=== PATIENT | female | born 1980 | race Caucasian/White ===

== ENCOUNTER 2018-08-07 11:52 | Observation (INO) ==
--- NOTE | 2018-08-07 13:40 | ED ---
HPI General Chief complaint: Neuro Symptoms/Deficit Stated complaint: Medical Time Seen by Provider: 08/07/18 13:12 History of Present Illness HPI narrative: 37-year-old female presents to the emergency department for evaluation of left arm numbness. The patient states that earlier today she experienced total left arm numbness that lasted for several minutes. States that it resolved on its own. She's also complaining of generalized weakness. She states she also had a significant headache 2 days ago that woke her up at night, this resolved on its own. She states she had had other abnormal symptoms recently including burning of her lower face intermittently with muscle twitching in the face occasionally. She also states over the past month she has had episodes of extreme heaviness of her eyelids. She states 3 months ago she was diagnosed with mouth burning syndrome after taking a medrol dosepak. Prior to this she has had no medical conditions. Denies any fever, chills, nausea, vomiting, chest pain, shortness of breath, lightheadedness, dizziness. No other complaints or concerns. Related Data Home Medications Medication Instructions Recorded Confirmed alprazolam [Xanax] 0.5 mg PO BID PRN 08/07/18 08/07/18 escitalopram oxalate [Lexapro] 10 mg PO DAILY 08/07/18 08/07/18 Allergies Allergy/AdvReac Type Severity Reaction Status Date / Time cephalexin Allergy Severe HIVES Unverified 06/24/17 17:56 erythromycin base Allergy Severe PALPITATION Unverified 06/24/17 17:56 S Review of Systems ROS: all other systems reviewed are negative [facility] Social History Social History Substance History: No History of Abuse Smoking Status: Never smoker How Often Do You Have a Drink Containing Alcohol: Never Recent Travel in [facility] within the Last 8 Weeks: No Recent Out of Country Travel within the Last 8 Weeks: No Immunization History Tetanus Immunization: Unsure Exam Narrative Exam Narrative: GENERAL: Well-nourished and well-developed pleasant patient in no acute distress who is nontoxic appearing. SKIN: Warm and dry. HEAD: Normocephalic and atraumatic. EYES: No injection, drainage, or hyphema noted. PERRLA. EOMI. ENT: No nasal drainage noted. Oropharynx is clear and the TMs are normal with good landmarks. NECK: Supple and the trachea is midline. No lymphadenopathy is noted throughout the cervical chains. CARDIOVASCULAR: Regular rate and rhythm. RESPIRATORY: Breath sounds are equal bilaterally with no accessory muscle use, wheezing, rhonchi, or crackles. GASTROINTESTINAL: Abdomen is soft, non-tender, and nondistended. MUSCULOSKELETAL: No obvious deformities, swelling, cyanosis, or ecchymosis is present throughout the upper and lower extremities. Patient has full range of motion without any signs of neurovascular compromise. Distal pulses are 2+ throughout. Strength 5/5 upper and lower extremities and equal bilaterally. NEUROLOGICAL: Awake, alert, and oriented. Normal speech and gait. Normal finger to nose testing. Normal heel to bernal test. Cranial nerves are grossly intact. Course Initial Documented Vital Signs Temperature 98.4 F 08/07/18 11:57 Pulse Rate 74 08/07/18 11:57 Respiratory Rate 16 08/07/18 11:57 Blood Pressure 137/74 08/07/18 11:57 Pulse Oximetry 100 08/07/18 11:57 Last Documented Vital Signs Temperature 98.4 F 08/07/18 11:57 Pulse Rate 66 08/07/18 15:10 Respiratory Rate 16 08/07/18 15:10 Blood Pressure 112/70 08/07/18 15:10 Pulse Oximetry 100 08/07/18 15:10 Medical Decision Making MDM Narrative Medical decision making narrative: 37-year-old female presents to the ED for evaluation of left arm numbness and multiple other neuro complaints. Patient is afebrile, vitals are stable. Physical exam is unremarkable. IV access is obtained, labs have been drawn and sent. Patient is placed on cardiac telemetry and pulse oximetry monitoring. CBC is unremarkable. Coags are unremarkable. CMP shows slightly decreased potassium of 3.4, otherwise unremarkable. Magnesium is unremarkable. Head CT is negative. Discussed case with my attending physician Dr. Max who also evaluated the patient. We agree to keep patient under observation for TIA work up. Patient is agreeable with this plan. I spoke with Dr. Mosquera [facility] who agrees to accept patient to his service for observation. Medical Screen Exam Complete: Yes Emergency Medical Condition: Yes Differential Diagnosis Differential Diagnosis: TIA versus electrolyte abnormality versus trigeminal neuralgia versus TMJ versus MS Lab Data Result diagrams: 08/07/18 13:15 08/07/18 13:15 POC Results POC Urine Results Negative Lab Results 09/28/18 09/28/18 09/28/18 Range/Units 13:15 13:15 13:15 WBC 9.1 (4.0-11.0) th/mm3 RBC 4.52 (4.00-5.30) mil/mm3 Hgb 13.1 (11.6-15.3) gm/dL Hct 40.3 (35.0-46.0) % MCV 89.1 (80.0-100.0) fL MCH 28.9 (27.0-34.0) pg MCHC 32.4 (32.0-36.0) % RDW 15.5 (11.6-17.2) % Plt Count 286 (150-450) th/mm3 MPV 10.5 (7.0-11.0) fL Neut % (Auto) 74.9 H (16.0-70.0) % Lymph % (Auto) 14.9 (9.0-44.0) % Dane % (Auto) 6.4 (0.0-8.0) % Eos % (Auto) 3.0 (0.0-4.0) % Baso % (Auto) 0.8 (0.0-2.0) % Neut # (Auto) 6.8 (1.8-7.7) th/mm3 Lymph # (Auto) 1.4 (1.0-4.8) th/mm3 Dane # (Auto) 0.6 (0.0-0.9) th/mm3 Eos # (Auto) 0.3 (0.0-0.4) th/mm3 Baso # (Auto) 0.1 (0.0-0.2) th/mm3 WBC Differential . Differential Comment Auto diff final PT 10.4 (9.8-11.6) sec INR 1.0 Ratio APTT 29.1 (24.3-30.1) sec Sodium 140 (136-145) meq/L Potassium 3.4 L (3.5-5.1) meq/L Chloride 105 (98-107) meq/L Carbon Dioxide 24.8 (21.0-32.0) meq/L Anion Gap 10 (5-15) meq/L BUN 10 (7-18) mg/dL Creatinine 0.72 (0.50-1.00) mg/dL Estimated GFR Greater than 89 (>89) mL/min Random Glucose 69 L (74-106) mg/dL Calcium 8.6 (8.5-10.1) mg/dL Magnesium (1.5-2.5) mg/dL Total Bilirubin 0.4 (0.2-1.0) mg/dL AST 13 L (15-37) U/L ALT 15 (10-53) U/L Alkaline Phosphatase 59 (45-117) U/L Total Protein 8.0 (6.4-8.2) g/dL Albumin 4.1 (3.4-5.0) g/dL 08/07/18 Range/Units 13:15 WBC (4.0-11.0) th/mm3 RBC (4.00-5.30) mil/mm3 Hgb (11.6-15.3) gm/dL Hct (35.0-46.0) % MCV (80.0-100.0) fL MCH (27.0-34.0) pg MCHC (32.0-36.0) % RDW (11.6-17.2) % Plt Count (150-450) th/mm3 MPV (7.0-11.0) fL Neut % (Auto) (16.0-70.0) % Lymph % (Auto) (9.0-44.0) % Dane % (Auto) (0.0-8.0) % Eos % (Auto) (0.0-4.0) % Baso % (Auto) (0.0-2.0) % Neut # (Auto) (1.8-7.7) th/mm3 Lymph # (Auto) (1.0-4.8) th/mm3 Dane # (Auto) (0.0-0.9) th/mm3 Eos # (Auto) (0.0-0.4) th/mm3 Baso # (Auto) (0.0-0.2) th/mm3 WBC Differential Differential Comment PT (9.8-11.6) sec INR Ratio APTT (24.3-30.1) sec Sodium (136-145) meq/L Potassium (3.5-5.1) meq/L Chloride (98-107) meq/L Carbon Dioxide (21.0-32.0) meq/L Anion Gap (5-15) meq/L BUN (7-18) mg/dL Creatinine (0.50-1.00) mg/dL Estimated GFR (>89) mL/min Random Glucose (74-106) mg/dL Calcium (8.5-10.1) mg/dL Magnesium 2.1 (1.5-2.5) mg/dL Total Bilirubin (0.2-1.0) mg/dL AST (15-37) U/L ALT (10-53) U/L Alkaline Phosphatase (45-117) U/L Total Protein (6.4-8.2) g/dL Albumin (3.4-5.0) g/dL Imaging Data Radiologist's impression: Head CT 08/07/18 13:36 CONCLUSION: 1. No acute intracranial abnormality. . Discharge Plan Discharge Disposition Patient Disposition: 30 Still Patient Discharge Details Diagnosis: Paresthesia of arm, Facial paresthesia Physicians Team ED Provider: Nathaniel Max ED Midlevel Provider: Mary Almeida Primary Care Provider: NON STAFF,PROVIDER Rxs /Orders / Referrals /Forms Prescriptions: No Action alprazolam [Xanax] 0.5 mg Tablet 0.5 mg PO BID PRN (Reason: Anxiety) RF: 0 escitalopram oxalate [Lexapro] 10 mg Tablet 10 mg PO DAILY RF: 0 Status ED Status: With Doctor
[2018-08-07 14:05] LABS: Baso # (Auto) 0.1 th/mm3 (0.0-0.2); Baso % (Auto) 0.8 % (0.0-2.0); Eos # (Auto) 0.3 th/mm3 (0.0-0.4); Hematocrit 40.3 % (35.0-46.0); Hemoglobin 13.1 gm/dL (11.6-15.3); Lymph # (Auto) 1.4 th/mm3 (1.0-4.8); Lymph % (Auto) 14.9 % (9.0-44.0); Mean Corpuscular HGB Conc 32.4 % (32.0-36.0); Mean Corpuscular Hemoglobin 28.9 pg (27.0-34.0); Mean Corpuscular Volume 89.1 fL (80.0-100.0); Mean Platelet Volume 10.5 fL (7.0-11.0); Mono # (Auto) 0.6 th/mm3 (0.0-0.9); Mono % (Auto) 6.4 % (0.0-8.0); Neut # (Auto) 6.8 th/mm3 (1.8-7.7); Neut % (Auto) 74.9 % (16.0-70.0); Platelet Count 286 th/mm3 (150-450); Red Blood Count 4.52 mil/mm3 (4.00-5.30); Red Cell Distribution Width 15.5 % (11.6-17.2); White Blood Count 9.1 th/mm3 (4.0-11.0)
[2018-08-07 14:15] LABS: Activated Partial Thrombo Time 29.1 sec (24.3-30.1); Prothrombin Time 10.4 sec (9.8-11.6)
[2018-08-07 14:30] LABS: Alanine Aminotransferase 15 U/L (10-53); Albumin 4.1 g/dL (3.4-5.0); Anion Gap 10 meq/L (5-15); Aspartate Aminotransferase 13 U/L (15-37); Blood Urea Nitrogen 10 mg/dL (7-18); Calcium 8.6 mg/dL (8.5-10.1); Carbon Dioxide 24.8 meq/L (21.0-32.0); Chloride 105 meq/L (98-107); Glomerular Filtration Rate Greater Than 89 mL/min (>89); Glucose,Random 69 mg/dL (74-106); Potassium 3.4 meq/L (3.5-5.1); Sodium 140 meq/L (136-145)
[2018-08-07 14:33] LABS: Alkaline Phosphatase 59 U/L (45-117)
--- NOTE | 2018-08-07 15:08 | CT ---
EXAM DATE: 08/07/2018 1:43 PM EDT AGE/SEX: 37 years / Female INDICATIONS: Left side facial numbness and facial droop. CLINICAL DATA: This is the patient's initial encounter. Patient reports that signs and symptoms have been present for 1 day and indicates a pain score of 0/10. MEDICAL/SURGICAL HISTORY: None. None. RADIATION DOSE: 35.72 CTDI (mGy) COMPARISON: No prior exams available for comparison. TECHNIQUE: CT of the head without contrast. Using automated exposure control and adjustment of the mA and/or kV according to patient size, radiation dose was kept as low as reasonably achievable to ob tain optimal diagnostic quality images. DICOM format image data is available electronically for revi ew and comparison. FINDINGS: Cerebrum: The ventricles are normal for age. No evidence of midline shift, mass lesion, hemorrhage o r acute infarction. No extraaxial fluid collections are seen. Posterior Fossa: The cerebellum and brainstem are intact. The 4th ventricle is midline. The cerebe llopontine angle is unremarkable. Extracranial: The visualized portion of the orbits is intact. Skull: The calvaria is intact. No evidence of skull fracture. CONCLUSION: 1. No acute intracranial abnormality. . Electronically signed by: Vikash Bhatt MD 08/07/2018 3:07 PM EDT
[2018-08-07] MEDS ORDERED: ALPRAZolam 0.5 MG Tablet PO PRN (16:41)
--- NOTE | 2018-08-07 16:55 | P.HPIM ---
History of Present Illness Service: [facility] Primary Care Physician: PROVIDER NON STAFF Chief Complaint: LEFT ARM NUMBNESS AND TINGLING History of Present Illness: Patient is a 37-year-old female. Who presented to the emergency department today for evaluation of left arm numbness. Patient states that earlier she experienced total left arm numbness that lasted for several minutes. She states that it resolved on its own. She also complained of generalized weakness. She is stated that she had significant headache 2 days ago that woke her up at night. This resolved on its own. She states she had some other abnormal symptoms recently including burning of her lower face intermittently with muscle twitching in the face occasionally. Also states over the past month that she had episodes of extreme heaviness of her eyelids. She states 3-month ago she was diagnosed with "burning mouth syndrome". She states she saw ENT Dr. Perez who referred her to an hand coremaker and a senior construction manager regarding this. Patient states that the "murmur burning mouth syndrome" started after taking a Medrol Dosepak. Prior to this that her only medical conditions are her anxiety and depression for which he takes Xanax and Lexapro. Patient denies any fevers, denies any chills, denies any nausea, denies any vomiting, denies any chest pain, denies any shortness of breath, denies any lightheadedness, denies any dizziness. Denies any other major somatic complaints. Review of Systems All other systems reviewed negative except as stated in HPI PMFSH - History History Provided By: Patient, Family Member - Medical History Medical History: Medical History (Last Updated 08/07/18 @ 16:48 by Dieter Snow DO) Anxiety Burning mouth syndrome Depression Frequent headaches - Family History Family History: Family History (Last Updated 08/07/18 @ 16:49 by Dieter Snow DO) Other Family history normal - Social History I have reviewed the patient's Social History: Yes - Tobacco History Second Hand Smoke Exposure: No Tobacco Use In Past 30 Days: No Smoking Status: Never smoker - Alcohol History How Often Do You Have a Drink Containing Alcohol: Never - Substance Use History Substance History: No History of Abuse - Travel History History of Recent Travel: No Recent Travel in the [place] Within the Last 8 Weeks: No Recent Travel Out of the Country Within the Last 8 Weeks: No - Immunization History Tetanus Immunization: Unsure Medications and Allergies Active Medications: Active Medications Alprazolam (Xanax) 0.5 mg PO BID PRN PRN Reason: Anxiety Aspirin (Aspirin Chew) 81 mg PO DAILY DILEEP Escitalopram Oxalate (Lexapro) 10 mg PO DAILY [facility] Heparin Sodium (Porcine) (Heparin Inj) 5,000 units SQ Q12H [facility] Sodium Chloride (Ns Inj) 1,000 mls @ 70 mls/hr IV.CONT .[id number] DILEEP Pravastatin Sodium (Pravachol) 40 mg PO HS DILEEP Allergies Allergy/AdvReac Type Severity Reaction Status Date / Time cephalexin Allergy Severe HIVES Verified 08/07/18 16:02 erythromycin base Allergy Severe PALPITATION Verified 08/07/18 16:02 S Home Medications Medication Instructions Recorded Confirmed Type alprazolam [Xanax] 0.5 mg PO BID PRN 08/07/18 08/07/18 History escitalopram oxalate [Lexapro] 10 mg PO DAILY 08/07/18 08/07/18 History Exam Vital signs: Vital Signs 08/07/18 11:57 08/07/18 13:02 08/07/18 15:10 Temperature 98.4 F Pulse Rate 74 76 66 Respiratory Rate 16 18 16 Blood Pressure 137/74 132/73 112/70 Pulse Oximetry 100 100 100 Intake & Output 08/06/18 08/07/18 08/07/18 18:59 06:59 18:59 Weight 57.606 kg Narrative: GENERAL: Awake alert and oriented x3 talkative and cooperative SKIN: Warm and dry. HEAD: Atraumatic. Normocephalic. EYES: Pupils equal and round. No scleral icterus. No injection or drainage. EOMI ENT: No nasal bleeding or discharge. Mucous membranes pink and moist. Tongue is midline NECK: Trachea midline. No JVD. CARDIOVASCULAR: Regular rate and rhythm. S1-S2 no S3 or S4 RESPIRATORY: No accessory muscle use. Clear to auscultation. Breath sounds equal bilaterally. GASTROINTESTINAL: Abdomen soft, non-tender, nondistended. Hepatic and splenic margins not palpable. MUSCULOSKELETAL: Extremities without clubbing, cyanosis, or edema. No obvious deformities. NEUROLOGICAL: Awake and alert. No obvious cranial nerve deficits. Motor grossly within normal limits. Five out of 5 muscle strength in the arms and legs. Normal speech. PSYCHIATRIC: Appropriate mood and affect; insight and judgment normal. Results - Labs CBC & Chem 7: 08/07/18 13:15 08/07/18 13:15 Labs: Short CBC 08/07/18 Range/Units 13:15 WBC 9.1 (4.0-11.0) th/mm3 Hgb 13.1 (11.6-15.3) gm/dL Hct 40.3 (35.0-46.0) % Plt Count 286 (150-450) th/mm3 BMP 08/07/18 13:15 Sodium 140 Potassium 3.4 L Chloride 105 Carbon Dioxide 24.8 BUN 10 Creatinine 0.72 Calcium 8.6 Liver Function 08/07/18 Range/Units 13:15 Total Bilirubin 0.4 (0.2-1.0) mg/dL AST 13 L (15-37) U/L ALT 15 (10-53) U/L Alkaline Phosphatase 59 (45-117) U/L Albumin 4.1 (3.4-5.0) g/dL - Imaging Impressions Head CT 08/07/18 13:36 CONCLUSION: 1. No acute intracranial abnormality. . Caprini VTE Risk Assessment Caprini VTE Risk Assessment: No/Low Risk (score <= 1) Caprini Risk Assessment Model: Point Value = 1 Point Value = 2 Point Value = 3 Point Value = 5 Age 41-60 Minor surgery BMI > 25 kg/m2 Swollen legs Varicose veins or History of unexplained or recurrent spontaneous Oral contraceptives or hormone replacement Sepsis (< 1 month) Serious lung disease, including pneumonia (< 1 month) Abnormal pulmonary function Acute myocardial infarction Congestive heart failure (< 1 month) History of inflammatory bowel disease Medical patient at bed rest Age 61-74 Arthroscopic surgery Major open surgery (> 45 min) Laparoscopic surgery (> 45 min) Malignancy Confined to bed (> 72 hours) Immobilizing plaster cast Central venous access Age >= 75 History of VTE Family history of VTE Factor V Leiden Prothrombin [id number] Lupus anticoagulant Anticardiolipin antibodies Elevated serum homocysteine Heparin-induced thrombocytopenia Other congenital or acquired thrombophilia Stroke (< 1 month) Elective arthroplasty Hip, pelvis, or leg fracture Acute spinal cord injury (< 1 month) Prophylaxis Regimen: Total Risk Factor Score Risk Level Prophylaxis Regimen 0-1 Low Early ambulation 2 Moderate Order ONE of the following: *Sequential Compression Device (SCD) *Heparin 5000 units SQ BID 3-4 Higher Order ONE of the following medications: *Heparin 5000 units SQ TID *Enoxaparin/Lovenox 40 mg SQ daily (WT < 150 kg, CrCl > 30 mL/min) *Enoxaparin/Lovenox 30 mg SQ daily (WT < 150 kg, CrCl > 10-29 mL/min) *Enoxaparin/Lovenox 30 mg SQ BID (WT < 150 kg, CrCl > 30 mL/min) AND/OR *Sequential Compression Device (SCD) 5 or more Highest Order ONE of the following medications: *Heparin 5000 units SQ TID (Preferred with Epidurals) *Enoxaparin/Lovenox 40 mg SQ daily (WT < 150 kg, CrCl > 30 mL/min) *Enoxaparin/Lovenox 30 mg SQ daily (WT < 150 kg, CrCl > 10-29 mL/min) *Enoxaparin/Lovenox 30 mg SQ BID (WT < 150 kg, CrCl > 30 mL/min) AND *Sequential Compression Device (SCD) Assessment and Plan - Plan Possible TIA doubt will continue on an aspirin 81 mg. We will get MRIs and MRAs of the head and neck will get a MRI of the neck due to this possible radiculopathy going down her left arm. Will get TSH and free T4 and hemoglobin A1c's as well as fasting lipids We will start on low-dose statin as well as an aspirin We will get troponins and cardiac enzymes We will get echocardiogram and carotid Dopplers No need for neurology unless something comes back positive Neuropathy versus trigeminal neuralgia with "burning mouth syndrome"-states occurred secondary to a Medrol Dosepak Anxiety/depression continue on her Xanax and Lexapro as at home Continue on DVT prophylaxis with aspirin and heparin subcu GI prophylaxis with Pepcid Expect workup to be essentially negative and patient can hopefully be discharged tomorrow to home Have discussed with mother as well as patient and emergency room physician and emergency room physician assistant professor of education Code Status: Full code Discussed Condition With: RN and patient and emergency room physician and emergency room physician assistant professor of education as well as patient's mother Discharge Planning: Hopefully discharge tomorrow unless something comes back very interesting on labs or exam
--- NOTE | 2018-08-07 17:47 | MR ---
EXAM DATE: 08/07/2018 5:09 PM EDT AGE/SEX: 37 years / Female INDICATIONS: . Left upper extremity weakness. CLINICAL DATA: This is the patient's initial encounter. Patient reports that signs and symptoms have been present for 1 day and indicates a pain score of 0/10. MEDICAL/SURGICAL HISTORY: . TMJ. Burning mouth. . Hand surgeries. COMPARISON: No prior exams available for comparison. TECHNIQUE: Multiplanar, multisequence examination of the brain was performed without contrast. FINDINGS: Cerebrum: The ventricles are normal for age. No evidence of midline shift, mass lesion, hemorrhage or acute infarction. No extraaxial fluid collections are seen. The pituitary gland and suprasellar cistern are normal in configuration. White Matter: No significant signal abnormalities are seen in the white matter. Posterior Fossa: The cerebellum and brainstem are intact. The 4th ventricle is midline. The cerebel lopontine angle is unremarkable. The cerebellar tonsils are normal in position. Diffusion Imaging: No focal areas of restricted diffusion are seen. No evidence of acute infarction . Extracranial: The visualized portions of the orbits and paranasal sinuses are unremarkable. CONCLUSION: 1. Negative MR Brain non contrast. 2. No evidence of acute infarct, hemorrhage, mass or edema. Electronically signed by: Mitch Peoples MD 08/07/2018 5:46 PM EDT
--- NOTE | 2018-08-07 17:50 | MR ---
EXAM DATE: 08/07/2018 5:09 PM EDT AGE/SEX: 37 years / Female INDICATIONS: . Left upper extremity weakness. CLINICAL DATA: This is the patient's initial encounter. Patient reports that signs and symptoms have been present for 1 day and indicates a pain score of 0/10. MEDICAL/SURGICAL HISTORY: . TMJ. Burning mouth. . Hand surgeries. COMPARISON: No prior exams available for comparison. TECHNIQUE: 3D [id number] MRA was performed. Source images, multiplanar STS MIP, and 3D volum e MIP reconstructions were reviewed. FINDINGS: There is excellent visualization of the major intracranial arteries out to the second-order branch ve ssels. Normal variant with origin of the left posterior cerebral arteries noted. There is no evidence for aneurysm, vessel truncation or stenosis, and no evidence for vascular malfor mation. CONCLUSION: 1. origin of the left posterior cerebral artery 2. Otherwise normal exam without evidence of steno-occlusive disease, aneurysm, vasculopathy or vasc ular malformation. Electronically signed by: Mitch Peoples MD 08/07/2018 5:48 PM EDT
--- NOTE | 2018-08-07 18:05 | MR ---
EXAM DATE: 08/07/2018 5:09 PM EDT AGE/SEX: 37 years / Female INDICATIONS: . Left upper extremity weakness. CLINICAL DATA: This is the patient's initial encounter. Patient reports that signs and symptoms have been present for 1 day and indicates a pain score of 0/10. MEDICAL/SURGICAL HISTORY: . TMJ. Burning mouth. . Hand surgeries. COMPARISON: No prior exams available for comparison. TECHNIQUE: Multiplanar, multisequence MRI examination of the cervical spine was performed without co ntrast. FINDINGS: At C2-3-4-5 there is no significant abnormality. No canal or foraminal stenosis. At C5-6 there is a mild broad-based disc protrusion but without significant canal or foraminal stenos is. Partial effacement of the anterior thecal sac. At C6-7 there is a mild disc bulge without stenosis. At C7-T1 there is no significant abnormality. No cord signal abnormalities. Normal alignment of the cervical spine. No nerve root compression. CONCLUSION: 1. At C5-6 there is a mild disc protrusion without stenosis. 2. No cord impingement or cord signal abnormality. No direct nerve root compression. Normal alignmen t of the cervical spine. Electronically signed by: Nile Jim MD 08/07/2018 6:04 PM EDT
--- NOTE | 2018-08-07 18:19 | US ---
EXAM DATE: 08/07/2018 12:00 AM EDT AGE/SEX: 37 years / Female INDICATIONS: Transient ischemic attack. CLINICAL DATA: This is the patient's initial encounter. Patient reports that signs and symptoms have been present for 1 day and indicates a pain score of 0/10. MEDICAL/SURGICAL HISTORY: . Anxiety. Burning mouth syndrome. Depression. None. COMPARISON: No prior exams available for comparison. VELOCITY PARAMETERS: ICA/CCA Ratio: Right 0.9 , Left 0.9 ICA: Right 95.3 cm/sec, Left 87.7 cm/sec CCA: Right 108.3 cm/sec, Left 96.3 cm/sec ECA: Right 100.5 cm/sec, Left 73.3 cm/sec Vertebral: Right 54.6 cm/sec antegrade, Left 57.8 cm/sec antegrade FINDINGS: Right Carotid: No significant plaque is visualized.The waveforms are within normal limits. Left Carotid: No significant plaque is visualized. The waveforms are within normal limits. Other: None. CONCLUSION: 1. Right Internal Carotid Artery: Minimal plaque without stenosis. 2. Left Internal Carotid Artery: Minimal plaque without stenosis. Electronically signed by: Nile Jim MD 08/07/2018 6:18 PM EDT
[2018-08-07 19:32] LABS: Creatine Kinase 48 U/L (26-192)
[2018-08-07] MEDS: Heparin - SQ 10,000 UNITS/ML Vial SQ SCH (20:22)
[2018-08-07] MEDS: Escitalopram 10 MG Tablet PO SCH (20:23)
[2018-08-07] MEDS: Sod Chloride 0.9% Inj 1,000 ML IV.CONT SCH (20:27)
[2018-08-07] MEDS: Famotidine 20 MG Tablet PO SCH (21:05)
--- NOTE | 2018-08-07 21:34 | ECG ---
Date Performed: 08/07/2018 Time Performed: 12:11:15 PTAGE: 37 years EKG: Sinus rhythm NORMAL ECG NO PREVIOUS TRACING DOCTOR: Manuel Burgos Interpretating Date/Time 08/07/2018 21:32:44
[2018-08-07 23:25] LABS: Creatine Kinase 38 U/L (26-192)
[2018-08-08 05:14] LABS: Baso # (Auto) 0.1 th/mm3 (0.0-0.2); Baso % (Auto) 0.8 % (0.0-2.0); Eos # (Auto) 0.5 th/mm3 (0.0-0.4); Eos % (Auto) 6.9 % (0.0-4.0); Hematocrit 37.1 % (35.0-46.0); Hemoglobin 12.2 gm/dL (11.6-15.3); Lymph # (Auto) 1.9 th/mm3 (1.0-4.8); Lymph % (Auto) 24.3 % (9.0-44.0); Mean Corpuscular HGB Conc 32.9 % (32.0-36.0); Mean Corpuscular Hemoglobin 29.1 pg (27.0-34.0); Mean Corpuscular Volume 88.4 fL (80.0-100.0); Mean Platelet Volume 10.2 fL (7.0-11.0); Mono # (Auto) 0.6 th/mm3 (0.0-0.9); Mono % (Auto) 8.2 % (0.0-8.0); Neut # (Auto) 4.6 th/mm3 (1.8-7.7); Neut % (Auto) 59.8 % (16.0-70.0); Platelet Count 267 th/mm3 (150-450); Red Cell Distribution Width 15.2 % (11.6-17.2); White Blood Count 7.7 th/mm3 (4.0-11.0)
[2018-08-08 05:33] LABS: Cholesterol 164 mg/dL (120-200); Triglycerides 72 mg/dL (42-150)
[2018-08-08 05:37] LABS: Chol/HDL Ratio 2.87 Ratio; HDL Cholesterol 57.1 mg/dL (40.0-60.0); LDL Cholesterol,Calculated 93 mg/dL (0-99)
[2018-08-08 05:42] LABS: Creatine Kinase 36 U/L (26-192)
[2018-08-08] MEDS: Heparin - SQ 10,000 UNITS/ML Vial SQ SCH (05:43)
[2018-08-08 08:42] VITALS: RESP 16
[2018-08-08] MEDS: Escitalopram 10 MG Tablet PO SCH (08:46)
[2018-08-08] MEDS: Famotidine 20 MG Tablet PO SCH (08:46)
[2018-08-08] MEDS: Sod Chloride 0.9% Inj 1,000 ML IV.CONT SCH (08:48)
[2018-08-08 10:31] LABS: Anion Gap 9 meq/L (5-15); Blood Urea Nitrogen 7 mg/dL (7-18); Calcium 8.8 mg/dL (8.5-10.1); Carbon Dioxide 23.2 meq/L (21.0-32.0); Chloride 109 meq/L (98-107); Glomerular Filtration Rate Greater Than 89 mL/min (>89); Glucose,Random 69 mg/dL (74-106); Potassium 4.1 meq/L (3.5-5.1); Sodium 141 meq/L (136-145)
--- NOTE | 2018-08-08 10:45 | ECHRPT ---
Indication: CVA/TIA CONCLUSIONS No obvious source for cardioembolic stroke identified on today's TTE. The patient was in sinus rhyth m during the study. Estimated left ventricular ejection fraction is 65%. No regional wall motion abnormality. Normal left ventricular size and wall thickness. No significant valvular heart disease. No atrial level shunt is demonstrated by color flow Doppler interrogation. The estimated pulmonary arterial pressure is 22.4 mmHg. No prior for comparison. BP: / HR: 64 Rhythm: Sinus MEASUREMENTS (Male / Female) Normal Values Technical Quality:Fair 2D ECHO LV Diastolic Diameter PLAX 4.6 cm 4.2 - 5.9 / 3.9 - 5.3 cm LV Systolic Diameter PLAX 3.0 cm IVS Diastolic Thickness 0.9 cm 0.6 - 1.0 / 0.6 - 0.9 cm LVPW Diastolic Thickness 0.9 cm 0.6 - 1.0 / 0.6 - 0.9 cm LV Relative Wall Thickness 0.4 RV Internal Dim ED PLAX 2.4 cm LVOT Diameter 1.9 cm Aortic Root Diameter 2.9 cm LA Systolic Diameter LX 2.8 cm 3.0 - 4.0 / 2.7 - 3.8 cm M-MODE AV Cusp Separation MM 1.8 cm DOPPLER AV Peak Velocity 124.0 cm/s AV Peak Gradient 6.2 mmHg AV Mean Gradient 3.0 mmHg AV Velocity Time Integral 24.9 cm LVOT Peak Velocity 94.7 cm/s LVOT Peak Gradient 3.6 mmHg LVOT Velocity Time Integral 18.9 cm AV Area Cont Eq vti 2.2 cm AV Area Cont Eq pk 2.2 cm Mitral E Point Velocity 62.7 cm/s Mitral A Point Velocity 42.4 cm/s Mitral E to A Ratio 1.5 LV E' Lateral Velocity 2.3 cm/s Mitral E to LV E' Lateral Ratio 26.8 LV E' Septal Velocity 8.8 cm/s Mitral E to LV E' Septal Ratio 7.1 TR Peak Velocity 176.0 cm/s TR Peak Gradient 12.4 mmHg Right Atrial Pressure 10.0 mmHg Pulmonary Artery Systolic Pressu 22.4 mmHg Right Ventricular Systolic Press 22.4 mmHg PV Peak Velocity 54.9 cm/s PV Peak Gradient 1.2 mmHg FINDINGS LEFT VENTRICLE Normal left ventricular size. Wall thickness is normal. Estimated EF is 60-65% RIGHT VENTRICLE Normal right ventricular size and systolic function. LEFT ATRIUM The left atrial size is normal. RIGHT ATRIUM The right atrial size is normal. ATRIAL SEPTUM No atrial level shunt is demonstrated by color flow Doppler interrogation. AORTA The aortic root and proximal ascending aorta are normal in size on limited imaging. MITRAL VALVE Mild thickening of the mitral valve leaflets. [id number] mitral valve regurgitation. AORTIC VALVE Trileaflet aortic valve. No aortic valve stenosis or regurgitation. TRICUSPID VALVE There is trace tricuspid valve regurgitation. The estimated pulmonary arterial pressure is 22.4 mmHg. PULMONARY VALVE No pulmonary valve regurgitation or stenosis. VESSELS The inferior vena cava is normal in size. PERICARDIUM No pericardial effusion. Kaushik Ireland MD (Electronically Signed) Final Date:08 August 2018 10:44
[2018-08-08 12:56] VITALS: BP 107/61; PULSE 69; TEMP 98.5; O2SAT 96
[2018-08-08 13:28] LABS: Hemoglobin A1c 5.3 % (4.3-6.0)
--- NOTE | 2018-08-08 15:08 | P.PN ---
Subjective Interval history: Follow up on patient with paresthesias. Patient seen and examined. Patient states that numbness in the left upper extremity has resolved. She continues to have intermittent tingling in all the digits of both hands and feet. She is hoping to go home today. She is asking if Lexapro can give her side effects of numbness and tingling. She is wondering if her symptoms are related to anxiety. Mother is at the bedside. Physical Exam Vital signs: Vital Signs 08/07/18 15:10 08/07/18 18:38 08/07/18 20:00 Temperature 98.5 F Pulse Rate 66 69 Respiratory Rate 16 16 16 Blood Pressure 112/70 133/79 Pulse Oximetry 100 100 98 08/07/18 20:05 08/08/18 00:02 08/08/18 03:54 Temperature 98.1 F 98.1 F 98.0 F Pulse Rate 75 62 63 Respiratory Rate 20 18 18 Blood Pressure 110/71 101/62 102/58 L Pulse Oximetry 99 100 99 08/08/18 08:00 08/08/18 08:34 08/08/18 12:34 Temperature 98.1 F 98.5 F Pulse Rate 65 69 Respiratory Rate 16 16 Blood Pressure 116/68 107/61 Pulse Oximetry 96 100 96 Intake & Output 08/07/18 08/08/18 08/08/18 18:59 06:59 18:59 Intake Total 1000 / 1000 Balance 1000 / 1000 Weight 57.606 kg Intake: IV 1000 / 1000 NS Inj 1,000 ML @ 70 mls/hr IV. 1000 / 1000 CONT .[id number] [facility] Rx#:[id number] Other: Weight On Admission 57.606 kg Narrative: GENERAL: WDWN appearing female patient in no acute distress. Awake and alert. Mother is at the bedside. SKIN: Warm and dry. No rash. HEAD: Atraumatic. Normocephalic. EYES: Pupils equal and round. No scleral icterus. No injection or drainage. EOMI ENT: No nasal bleeding or discharge. Mucous membranes pink and moist. Tongue is midline NECK: Trachea midline. CARDIOVASCULAR: Regular rate and rhythm. RESPIRATORY: No accessory muscle use. Clear to auscultation. Breath sounds equal bilaterally. GASTROINTESTINAL: Abdomen soft, non-tender, nondistended. +BS. MUSCULOSKELETAL: Extremities without clubbing, cyanosis, or edema. No obvious deformities. NEUROLOGICAL: Awake and alert. No obvious cranial nerve deficits. Motor grossly within normal limits. Able to move all extremities spontaneously. Normal speech. PSYCHIATRIC: Appropriate mood and affect; insight and judgment normal. Results - Labs CBC & Chem 7: 08/08/18 04:28 08/08/18 09:11 Laboratory Results - last 24 hr 08/07/18 08/07/18 08/07/18 13:15 13:15 20:49 WBC RBC Hgb Hct MCV MCH MCHC RDW Plt Count MPV Neut % (Auto) Lymph % (Auto) [place] % (Auto) Eos % (Auto) Baso % (Auto) Neut # (Auto) Lymph # (Auto) [place] # (Auto) Eos # (Auto) Baso # (Auto) WBC Differential Differential Comment Sodium 140 Potassium 3.4 L Chloride 105 Carbon Dioxide 24.8 Anion Gap 10 BUN 10 Creatinine 0.72 Estimated GFR Greater than 89 POC Glucose 111 H Random Glucose 69 L Hemoglobin A1c Calcium 8.6 Total Bilirubin 0.4 AST 13 L ALT 15 Alkaline Phosphatase 59 Total Creatine Kinase 48 Cancelled Troponin I Less than 0.02 L Cancelled Total Protein 8.0 Albumin 4.1 Triglycerides Cholesterol LDL Cholesterol, Calc HDL Cholesterol Cholesterol/HDL Ratio Vitamin B12 08/07/18 08/08/18 08/08/18 22:41 04:28 04:28 WBC 7.7 RBC 4.20 Hgb 12.2 Hct 37.1 MCV 88.4 MCH 29.1 MCHC 32.9 RDW 15.2 Plt Count 267 MPV 10.2 Neut % (Auto) 59.8 Lymph % (Auto) 24.3 [place] % (Auto) 8.2 H Eos % (Auto) 6.9 H Baso % (Auto) 0.8 Neut # (Auto) 4.6 Lymph # (Auto) 1.9 [place] # (Auto) 0.6 Eos # (Auto) 0.5 H Baso # (Auto) 0.1 WBC Differential . Differential Comment Auto diff final Sodium Potassium Chloride Carbon Dioxide Anion Gap BUN Creatinine Estimated GFR POC Glucose Random Glucose Hemoglobin A1c Calcium Total Bilirubin AST ALT Alkaline Phosphatase Total Creatine Kinase 38 36 Troponin I Less than 0.02 L Less than 0.02 L Total Protein Albumin Triglycerides 72 Cholesterol 164 LDL Cholesterol, Calc 93 HDL Cholesterol 57.1 Cholesterol/HDL Ratio 2.87 Vitamin B12 0908/08/18 08/08/18 04:28 07:38 09:11 WBC RBC Hgb Hct MCV MCH MCHC RDW Plt Count MPV Neut % (Auto) Lymph % (Auto) [place] % (Auto) Eos % (Auto) Baso % (Auto) Neut # (Auto) Lymph # (Auto) [place] # (Auto) Eos # (Auto) Baso # (Auto) WBC Differential Differential Comment Sodium 141 Potassium 4.1 Chloride 109 H Carbon Dioxide 23.2 Anion Gap 9 BUN 7 Creatinine 0.59 Estimated GFR Greater than 89 POC Glucose 80 Random Glucose 69 L Hemoglobin A1c 5.3 Calcium 8.8 Total Bilirubin AST ALT Alkaline Phosphatase Total Creatine Kinase Troponin I Total Protein Albumin Triglycerides Cholesterol LDL Cholesterol, Calc HDL Cholesterol Cholesterol/HDL Ratio Vitamin B12 08/08/18 08/08/18 09:11 12:45 WBC RBC Hgb Hct MCV MCH MCHC RDW Plt Count MPV Neut % (Auto) Lymph % (Auto) [place] % (Auto) Eos % (Auto) Baso % (Auto) Neut # (Auto) Lymph # (Auto) [place] # (Auto) Eos # (Auto) Baso # (Auto) WBC Differential Differential Comment Sodium Potassium Chloride Carbon Dioxide Anion Gap BUN Creatinine Estimated GFR POC Glucose 97 Random Glucose Hemoglobin A1c Calcium Total Bilirubin AST ALT Alkaline Phosphatase Total Creatine Kinase Troponin I Total Protein Albumin Triglycerides Cholesterol LDL Cholesterol, Calc HDL Cholesterol Cholesterol/HDL Ratio Vitamin B12 483 - Imaging Impressions Carotid Doppler Study 08/07/18 00:00 CONCLUSION: 1. Right Internal Carotid Artery: Minimal plaque without stenosis. 2. Left Internal Carotid Artery: Minimal plaque without stenosis. Cervical Spine MRI 08/07/18 00:00 CONCLUSION: 1. At C5-6 there is a mild disc protrusion without stenosis. 2. No cord impingement or cord signal abnormality. No direct nerve root compression. Normal alignment of the cervical spine. Head MRI 08/07/18 00:00 CONCLUSION: 1. Negative MR Brain non contrast. 2. No evidence of acute infarct, hemorrhage, mass or edema. Head MRA 08/07/18 00:00 CONCLUSION: 1. origin of the left posterior cerebral artery 2. Otherwise normal exam without evidence of steno-occlusive disease, aneurysm , vasculopathy or vascular malformation. Head CT 08/07/18 13:36 CONCLUSION: 1. No acute intracranial abnormality. . Assessment and Plan - Plan Left arm numbness, resolved Paresthesias bilaterally fingers and toes MRI and MRA of the head negative. Doppler ultrasound reveals minimal plaque bilaterally. MRI of the cervical spine shows mild disc protrusion at C5-6. Lyme titers pending. trops neg x 3 ECHO EF 65% B12 483 -Discussed with patient and mother at the bedside possibly medication side effect versus anxiety presentation. Consider EMG as outpatient. Anxiety/depression -Continue on Xanax and Lexapro Hypokalemia -Resolved status post repletion DVT prophylaxis -Heparin subcu Discharge patient to home Condition on discharge: stable Regular Diet as tolerated Ad Naomy activity Rx written: Follow-up with primary care physician. Also suggested patient follow-up with psychiatrist as outpatient for further evaluation if anxiety is because of her symptoms. Also discussed EMG study as outpatient. Code Status: FULL Discussed Condition With: patient, mother, nursing staff, Dr. Crane
[2018-08-09 19:51] LABS: Lyme Disease DNA (PCR) NOT DETECTED
[2018-08-11 23:53] LABS: Lyme Ab 18KD IgG WB NON-REACTIVE; Lyme Ab 23KD IgG WB NON-REACTIVE; Lyme Ab 23KD IgM WB NON-REACTIVE; Lyme Ab 28KD IgG WB NON-REACTIVE; Lyme Ab 30KD IgG WB NON-REACTIVE; Lyme Ab 39KD IgG WB NON-REACTIVE; Lyme Ab 39KD IgM WB NON-REACTIVE; Lyme Ab 41KD IgG WB REACTIVE; Lyme Ab 41KD IgM WB NON-REACTIVE; Lyme Ab 45KD IgG WB NON-REACTIVE; Lyme Ab 58KD IgG WB NON-REACTIVE; Lyme Ab 66KD IgG WB NON-REACTIVE; Lyme Ab 93KD IgG WB NON-REACTIVE
== END 2018-08-08 13:59 | disposition home or self-care (01) ==
LOC: NEDA 11:52 → NEPC 11:52 → NEPHCDU 16:34
PROVIDERS: ADMIT Hospitalist; ATTEND Hospitalist